=== PATIENT | female | born 1960 | race Caucasian/White ===

== ENCOUNTER → 2024-08-24 10:11 | Outpatient (REF) | payer BC, SELFPAY | LOC: HWRAD 10:11 | PROVIDERS: ATTENDING PHYSICIAN Internal Medicine Critical Care Medicine; FAMILY PHYSICIAN Family Medicine | DX: J45.41 Moderate persistent asthma with (acute) exacerbation (principal); R04.2 Hemoptysis | CPT/HCPCS: 71046 ==

== ENCOUNTER 2024-11-09 06:16 | Day surgery (SDC) | payer BC, SELFPAY ==
[2024-11-09 08:22] VITALS: BMI 32.8
[2024-11-09 08:23] VITALS: BP 147/91; BMI 32.8
[2024-11-09 10:24] VITALS: BP 133/80
[2024-11-09 10:30] VITALS: BP 121/84
[2024-11-09 10:45] VITALS: BP 135/68
[2024-11-09 11:00] VITALS: BP 131/91
== END 2024-11-09 11:10 | disposition home or self-care (01) ==
LOC: GI 06:16
PROVIDERS: ATTENDING PHYSICIAN Internal Medicine Gastroenterology
DX: Z12.11 Encounter for screening for malignant neoplasm of colon (principal); R19.5 Other fecal abnormalities; K57.30 Diverticulosis of large intestine without perforation or abscess without bleeding; K64.8 Other hemorrhoids; R13.10 Dysphagia, unspecified; R12 Heartburn; K44.9 Diaphragmatic hernia without obstruction or gangrene; K20.90 Esophagitis, unspecified without bleeding; K31.89 Other diseases of stomach and duodenum; D12.5 Benign neoplasm of sigmoid colon
CPT/HCPCS: 45385; 45381; 43239; 88305; 88342